=== PATIENT | female | born 1955 | race Caucasian/White ===

== ENCOUNTER → 2016-05-04 | Outpatient (CLI) | payer BC ==
[~2016-05-04] MED LIST: CALC600T9 PO; FEXO1TAB49 PO; FLUT0.15 NAE; SIMV40TA2 PO
--- NOTE | 2016-05-05 12:25 | MAMMOGRAPHY REPORT ---
BILATERAL DIGITAL SCREENING MAMMOGRAM TOMOSYNTHESIS WITH CAD: 05/04/2016 CLINICAL HISTORY: Routine screening examination. TECHNIQUE: Breast tomosynthesis in addition to standard 2D mammography was performed. Current study was also evaluated with a Computer Aided Detection (CAD) system. COMPARISON: Comparison is made to exams dated: 02/13/2016 breast MRI, 04/23/2015 mammogram - [facility], 02/16/2008, and 02/14/2007. BREAST COMPOSITION: The tissue of both breasts is heterogeneously dense, which may obscure small ma sses. FINDINGS: The parenchymal pattern is similar to prior mammograms and there are numerous stable bilat eral benign-appearing microcalcifications. There is a stable metallic biopsy marker in the 12:00 le ft breast denoting an area of prior benign biopsy. No suspicious mass, architectural distortion or c luster of microcalcifications is seen. IMPRESSION: ACR BI-RADS CATEGORY 2: BENIGN 1. There is no mammographic evidence of malignancy. A 1 year screening mammogram is recommended. 2. It should be noted that a short interval follow-up breast MRI was recommended based on the 2015 exam to ensure stability of areas of enhancement within the left breast. That prior recomm endation stands despite stable mammography as some abnormalities are mammographically occult. The patient will receive written notification of the results. Approximately 10% of breast cancers are not detected with mammography. A negative mammographic repor t should not delay biopsy if a clinically suggestive mass is present. Tania Trinidad M.D. ay/:05/04/2016 16:22:33 Gas Plant Operator: Marion GÓMEZ(Frieda)(Michelle), [facility] letter sent: Normal 1/2 BI-RADS Code: ACR BI-RADS Category 2: Benign
== END | disposition home or self-care (01) ==
LOC: C.MAMM 14:40
PROVIDERS: ATTEND Obstetrics & Gynecology
DX: Z12.31 Encounter for screening mammogram for malignant neoplasm of breast (principal)

== ENCOUNTER → 2016-05-27 | Outpatient (CLI) | payer BC | END | disposition home or self-care (01) | LOC: C.PAPS 09:43 | PROVIDERS: ATTEND Obstetrics & Gynecology | DX: Z01.419 Encounter for gynecological examination (general) (routine) without abnormal findings (principal) ==

== ENCOUNTER → 2016-08-07 | Outpatient (CLI) | payer BC ==
[~2016-08-07] MED LIST changes: +GADAVIST IV PRN
--- NOTE | 2016-08-10 13:16 | MAMMOGRAPHY REPORT ---
BREAST MRI OF BOTH BREASTS : 08/07/2016 CLINICAL HISTORY: Six-month follow-up breast MRI for areas of enhancement within the left breast on p rior breast MRI. Strong family history of breast cancer. History of prior benign MRI guided biopsy of the left breast. COMPARISON: Comparison is made to exams dated: 05/04/2016 mammogram, 02/13/2016 breast MRI, and 016 mammogram - [facility]. Outside breast MRI dated 07/13/2012. Technique: The patient was placed prone in a dedicated breast imaging coil. Precontrast axial T1-pranay ghted, axial T2-weighted fat saturation, and axial T1-weighted fat saturation images were obtained. After the administration of 5 mL of Gadavist IV contrast, sequential T1-weighted fat saturation image s were obtained. Subtraction images were obtained of the dynamic contrast enhanced sequences, and 3- D reformations were performed. The [employer] software was used for kinetic analysis. Findings: Right breast: There is mild background parenchymal enhancement. There are no suspicious enhancing ma sses or areas of abnormal enhancement seen within the right breast. There has been no significant in terval change compared to the prior breast MRI. Left breast: There is mild background parenchymal enhancement. The previously described three areas of focal enhancement within the left breast are stable compared to the prior breast MRI dated 02/13/20, and are also stable compared to the 07/13/2012 outside MRI when accounting for differences in MRI t echnique. One is an 8 mm focal area of enhancement in the left breast at approximately 11:30 middle depth, which demonstrates a persistent and plateau kinetic pattern (series [id number] image 47). The othe r measures 6 mm in the left 12:00 breast middle depth which demonstrates a plateau and persistent kin etic pattern (series [id number] image 41). One of the areas within the left 11:30 to 12:00 breast was rep ortedly previously biopsied at an outside institution, although the images from the biopsy are not av ailable for review and clip artifact is not clearly evident on the images. The other focus is a faint 3 mm focus of enhancement in the left breast at approximately 9:00 middle depth, which demonstrates no abnormal kinetics (series [id number] image 64). Given the stability to the 2012 exam given that one of the areas was previously biopsied and yielded benign pathology, the findings are considered benign. No new or suspicious masses or areas of abnormal enhancement are noted. There is no evidence of axillary adenopathy. The chest wall structures are negative. Visualized ext ramammary soft tissues are grossly unremarkable. IMPRESSION: ACR BI-RADS CATEGORY 2: BENIGN No MRI evidence of malignancy in either breast. The 3 previously described focal areas of enhancement within the left breast are stable compared to the 02/13/2016 and 07/13/2012 exams. Given the long-term stability, the findings are considered benign. Given the strong family history of breast cancer, re commend continuation with yearly screening breast MRI in addition to yearly mammography. Rae Hernandez M.D. ah/:08/08/2016 12:37:58 Independent Driver: superintendent radio communications, [facility] letter sent: Normal 1/2 BI-RADS Code: ACR BI-RADS Category 2: Benign
== END | disposition home or self-care (01) ==
LOC: C.MRI 08:44
PROVIDERS: ATTEND Obstetrics & Gynecology
DX: Z15.01 Genetic susceptibility to malignant neoplasm of breast (principal)

== ENCOUNTER → 2016-08-12 | Day surgery (SDC) | payer BC ==
[2016-08-04 11:20] VITALS: Ht 156.2 cm; Wt 54.5 kg
[~2016-08-12] VITALS: Ht 156.2 cm; Wt 54.5 kg
[~2016-08-12] MED LIST changes: -GADAVIST IV PRN; +LIDOCAINE HCL 2% 2 ML VIAL (20MG/ML) ONE; +PROPOFOL IV EMULSION 10 MG/ML 20 ML VIAL IV ONE; +SODIUM CHLORIDE 0.9% 500ML 500 ML IV ONE
--- NOTE | 2016-08-12 12:07 | Endo History and Physical ---
History & Physical Date of Service: Aug 12, 2016. Chief Complaint: Positive colorectal screen Referring Physician: Dr Hemanth Perales History of Present Illness 61 yo CF who presents for Colonoscopy secondary to heme positive stool. Past Surgical History Hx Cardiac Surgery: No Hx Internal Defibrillator: No Hx Pacemaker: No Hx Abdominal Surgery: Yes (OOPHORECTOMY) Hx of Implantable Prosthesis: No Hx Post-Op Nausea and Vomiting: No Hx Cancer Surgery: No Hx Thoracic Surgery: No Hx Orthopedic: No Hx Urinary Tract Surgery: No Family History None Social History Smoking Status: Never Smoker Hx Substance Use: No Hx Alcohol Use: No Allergies Coded Allergies: Sulfa Drugs (Verified Allergy, Mild, RASH, 08/04/16) Penicillins (Verified Allergy, Unknown, GI UPSET, 08/04/16) Current Medications Reported Home Medications Medications Dose Route/Sig Max Daily Dose Days Date Category Calcium + D (Calcium Carbonate-Vitamin D) 1 Tab Tab 1 Tab PO BID 08/04/16 Reported Zocor (Simvastatin) 40 Mg Tab 40 Mg PO QPM 08/04/16 Reported Flonase Allergy Relief (Fluticasone Propionate (Nasal)) 50 Mcg/Act Spr 2 Sprays MIRA QAM 08/04/16 Reported Cecile Allergy (Fexofenadine Hcl) 180 Mg Tab 1 Tab PO Q2D 08/04/16 Reported Vital Signs Weight (Kilograms): 54.55 Height (Feet): 5 Height (Inches): 1.5 Date Time Temp Pulse Resp B/P (MAP) Pulse Ox O2 Delivery O2 Flow Rate FiO2 08/12/16 11:46 37.0 90 20 145/83 97 Room Air Physical Exam General Appearance: WD/WN, no apparent distress Respiratory/Chest: Auscultation: breath sounds normal Cardiovascular: Heart Auscultation: RRR Abdomen: Bowel Sounds: normal Inspection & Palpation: soft, non-distended, no tenderness, guarding & rebound Assessment and Plan Assessment: 61 yo CF who presents for Colonoscopy secondary to heme positive stool. Plan: Proceed with Colonoscopy.
--- NOTE | 2016-08-12 12:52 | GI REPORT ---
Procedure Date: 08/12/2016 12:06 PM Procedure: Colonoscopy Indications: Heme positive stool Medicines: Monitored Anesthesia Care Complications: No immediate complications. Estimated Blood Loss: Estimated blood loss: none. Procedure: Pre-Anesthesia Assessment: - Prior to the procedure, a History and Physical was performed, and patient medications and allergies were reviewed. The patient's tolerance of previous anesthesia was also reviewed. The risks and benefits of the procedure and the sedation options and risks were discussed with the patient. All questions were answered, and informed consent was obtained. Prior Anticoagulants: The patient has taken no previous anticoagulant or antiplatelet agents. ASA Grade Assessment: II - A patient with mild systemic disease. After reviewing the risks and benefits, the patient was deemed in satisfactory condition to undergo the procedure. After I obtained informed consent, the scope was passed under direct vision. Throughout the procedure, the patient's blood pressure, pulse, and oxygen saturations were monitored continuously. The Scope was introduced through the anus and advanced to the terminal ileum. The colonoscopy was performed without difficulty. The patient tolerated the procedure well. The quality of the bowel preparation was good. The terminal ileum, ileocecal valve, appendiceal orifice, and rectum were photographed. Findings: A 3 mm polyp was found in the ascending colon. The polyp was sessile. The polyp was removed with a cold snare. Resection was complete, but the polyp tissue was not retrieved. A 5 mm polyp was found in the rectum. The polyp was sessile. The polyp was removed with a hot snare. Resection and retrieval were complete. Multiple small-mouthed diverticula were found in the sigmoid colon. Non-bleeding internal hemorrhoids were found during retroflexion. The hemorrhoids were small. Impression: - One 3 mm polyp in the ascending colon, removed with a cold snare. Complete resection. Polyp tissue not retrieved. - One 5 mm polyp in the rectum, removed with a hot snare. Resected and retrieved. - Diverticulosis in the sigmoid colon. - Non-bleeding internal hemorrhoids. Recommendation: - Resume previous diet. - Continue present medications. - Repeat colonoscopy for surveillance based on pathology results. - Return to primary care physician as previously scheduled. Richard Hart DO 08/12/2016 12:52:17 PM This report has been signed electronically. Note Initiated On: 08/12/2016 12:06 PM I attest to the content of the Intraoperative Record and orders documented therein, exceptions below
--- NOTE | 2016-08-12 13:01 | Anesthesiology Progress Note ---
Anesthesia Post Op Note Date & Time Aug 12, 2016 at 13:00 Vital Signs Pain Intensity: 0 Vital Signs Past 12 Hours Date Time Temp Pulse Resp B/P (MAP) Pulse Ox O2 Delivery O2 Flow Rate FiO2 08/12/16 12:45 75 16 97/66 96 Room Air 08/12/16 11:46 37.0 90 20 145/83 97 Room Air Notes Mental Status: alert / awake / arousable, participated in evaluation Pt Amnestic to Procedure: Yes Nausea / Vomiting: adequately controlled Pain: adequately controlled Airway Patency, RR, SpO2: stable & adequate BP & HR: stable & adequate Hydration State: stable & adequate Anesthetic Complications: no major complications apparent
[2016-08-12 13:05] VITALS: BP 123/77; PULSE 66; O2SAT 96
--- NOTE | 2016-08-12 13:13 | Discharge Instructions ---
Endoscopy Patient Instructions Date / Procedure(s) Performed Aug 12, 2016. Colonoscopy Allergy Information Coded Allergies: Sulfa Drugs (Verified Allergy, Mild, RASH, 08/04/16) Penicillins (Verified Allergy, Unknown, GI UPSET, 08/04/16) Discharge Date / Findings Aug 12, 2016. Colon polyps Diverticulosis Internal hemorrhoids Medication Instructions OK to resume all medications today as prescribed Medications Dose Route/Sig Max Daily Dose Days Date Category Calcium + D (Calcium Carbonate-Vitamin D) 1 Tab Tab 1 Tab PO BID 08/04/16 Reported Zocor (Simvastatin) 40 Mg Tab 40 Mg PO QPM 08/04/16 Reported Flonase Allergy Relief (Fluticasone Propionate (Nasal)) 50 Mcg/Act Spr 2 Sprays MIRA QAM 08/04/16 Reported Cecile Allergy (Fexofenadine Hcl) 180 Mg Tab 1 Tab PO Q2D 08/04/16 Reported Provider Instructions Activity Restrictions - No exercising or heavy lifting for 24 hours. - Do not drink alcohol the day of the procedure. - Do not drive a car or operate machinery until the day after the procedure. - Do not make any important decisions or sign important papers in 24 hours after the procedure. Following Day: - Return to full activity which may include returning to work/school. Diet Start your diet with liquids and light foods (jello, soup, juice, toast). Then eat your usual diet if not nauseated. Treatment For Common After Affects For mild abdominal pain, bloating, or excessive gas: - Rest - Eat lightly - Lie on right side Follow-Up Information Follow-up with Dr Jonas, Dr Saxena as scheduled Anesthesia Information What You Should Know You have had a procedure that required some medicine to reduce anxiety and discomfort. This treatment is called moderate sedation. After receiving the treatment, you may be sleepy, but you will be able to breathe on your own. The effects of the treatment may last for several hours. Follow these instructions along with Activity/Diet recommendations noted above: * Do NOT do anything where dizziness or clumsiness would be dangerous. * Rest quietly at home today, then you can be up and about tomorrow. * Have a responsible person stay with you the rest of today. * You may have had an I.V. today. If so, you may take the dressing off later today. Recommendations Call your doctor if: * Trouble breathing * Continuous vomiting for more than 24 hours * Temperature above 101 degrees * Severe abdominal pain or bloating * Pain not relieved by pain medicine ordered * There is increased drainage or redness from any incision * A large amount of rectal bleeding greater than 2-3 tablespoons. (If you had a polyp/s removed or have hemorrhoids, a small amount of blood - from the rectum is to be expected.) * You have any unanswered questions or concerns. IN THE EVENT OF A SERIOUS EMERGENCY, GO TO THE NEAREST EMERGENCY ROOM Your discharge instructions were prepared by provider Richard Hart. Patient Instructions Signature Page Sandy Parra Patient (or Guardian) Signature/Date: I have read and understand the instructions given to me by my caregivers. Caregiver/RN/Doctor Signature/Date: The above-named patient and/or guardian has received patient instructions on this date. + Original Patient Signature Page (only) stays with chart. Please make copy for patient.
== END | disposition home or self-care (01) ==
LOC: C.GI 11:23
PROVIDERS: ATTEND Internal Medicine
DX: D12.2 Benign neoplasm of ascending colon (principal); K62.1 Rectal polyp; K57.30 Diverticulosis of large intestine without perforation or abscess without bleeding; K64.8 Other hemorrhoids; R19.5 Other fecal abnormalities; Z79.899 Other long term (current) drug therapy

== ENCOUNTER → 2016-10-20 | Outpatient (CLI) | payer BC ==
[~2016-10-20] MED LIST changes: -LIDOCAINE HCL 2% 2 ML VIAL (20MG/ML) ONE; -PROPOFOL IV EMULSION 10 MG/ML 20 ML VIAL IV ONE; -SODIUM CHLORIDE 0.9% 500ML 500 ML IV ONE
== END | disposition home or self-care (01) ==
LOC: C.MAMM 15:00
PROVIDERS: ATTEND Obstetrics & Gynecology
DX: M81.0 Age-related osteoporosis without current pathological fracture (principal); M85.89 Other specified disorders of bone density and structure, multiple sites

== ENCOUNTER → 2017-05-04 | Outpatient (CLI) | payer BC ==
--- NOTE | 2017-05-05 15:56 | MAMMOGRAPHY REPORT ---
BILATERAL DIGITAL SCREENING MAMMOGRAM TOMOSYNTHESIS WITH CAD: 05/04/2017 CLINICAL HISTORY: Routine screening. Patient has no complaints. TECHNIQUE: Breast tomosynthesis in addition to standard 2D mammography was performed. Current study was also evaluated with a Computer Aided Detection (CAD) system. COMPARISON: Comparison is made to exams dated: 08/07/2016 breast MRI, 05/04/2016 mammogram, 02/13/2016 b reast MRI, 04/23/2015 mammogram - [facility], 02/28/2008, and 02/23/2008. BREAST COMPOSITION: The tissue of both breasts is heterogeneously dense, which may obscure small mas ses. FINDINGS: There are scattered benign calcifications in both breasts. There is a stable benign metal lic biopsy clip in the 12:00 middle one third of the left breast. No suspicious mass, architectural d istortion or new cluster of microcalcifications is seen. IMPRESSION: ACR BI-RADS CATEGORY 2: BENIGN There is no mammographic evidence of malignancy. A 1 year screening mammogram is recommended. The pa tient will receive written notification of the results. Approximately 10% of breast cancers are not detected with mammography. A negative mammographic report should not delay biopsy if a clinically suggestive mass is present. Tania Trinidad M.D. ay/:05/04/2017 17:03:25 Pairing Machine Operator: Frieda Galarza M, [facility] letter sent: Normal 1/2 BI-RADS Code: ACR BI-RADS Category 2: Benign
== END | disposition home or self-care (01) ==
LOC: C.MAMM 15:28
PROVIDERS: ATTEND Obstetrics & Gynecology
DX: Z12.31 Encounter for screening mammogram for malignant neoplasm of breast (principal)

== ENCOUNTER → 2017-06-18 | Outpatient (CLI) | payer BC | END | disposition home or self-care (01) | LOC: C.PAPS 15:37 | PROVIDERS: ATTEND Obstetrics & Gynecology | DX: Z01.419 Encounter for gynecological examination (general) (routine) without abnormal findings (principal) ==

== ENCOUNTER → 2017-09-23 | Outpatient (CLI) | payer BC ==
[2017-09-23 12:54] LABS: BLOOD UREA NITROGEN 11 mg/dl (7-18); CREATININE 0.69 mg/dl (0.60-1.20)
== END | disposition home or self-care (01) ==
LOC: C.LAB1850 11:37
PROVIDERS: ATTEND Obstetrics & Gynecology
DX: Z15.01 Genetic susceptibility to malignant neoplasm of breast (principal)

== ENCOUNTER → 2017-10-19 | Outpatient (CLI) | payer BC ==
[~2017-10-19] MED LIST changes: +GADAVIST IV PRN
--- NOTE | 2017-10-20 13:52 | MAMMOGRAPHY REPORT ---
BREAST MRI OF BOTH BREASTS: 10/19/2017 CLINICAL HISTORY: 62-year-old woman with strong family history of breast cancer = mother, sister and aunt, and heterogeneously dense breasts. Patient presents for screening breast MRI. History of prior benign left breast biopsy. COMPARISON: Prior breast MRIs dated 08/07/2016, 02/13/2016, 07/13/2012, 03/09/2008, prior mammograms dated , 05/04/2016, 04/23/2015, 04/06/2014, 04/04/2013. TECHNIQUE: Using a 1.5 Francie magnet and dedicated breast coil, multisequence axial images were obtain ed through the breasts. After uneventful IV administration of 5 mL of Gadavist, dynamic multiphase c ontrast-enhanced axial images, and sagittal postcontrast were obtained. Temporal subtraction axial i mages and 3-D MIP images are provided. Everything was then reviewed on a 3-D workstation, [employer] [facility]. FINDINGS: Right breast: There is mild background parenchymal enhancement. No suspicious enhancing mass, non-ma ss enhancement or suspicious kinetics identified in the right breast. The nipple areolar complex is intact. No significant interval change compared to prior MRIs. No suspicious right axillary lymphad enopathy. Left breast: There is mild background parenchymal enhancement. There is an oval 2 lobulated enhancin g mass in the 12:00 far superior, middle one third of the left breast (axial page 40/112). Attempt w as made at measuring this lesion in the same plane as prior breast MRIs. When comparing directly to the 02/13/2016 MRI this mass is measuring slightly larger, with current measurements of 6.3 x 3.8 mm, previously measured 5.0 x 3.6 mm. Additionally, the kinetic information demonstrates new central was hout of this mass, previously demonstrated persistent type kinetics. No corresponding T2 hyperintens ity. Although the appearance was somewhat similar dating back to 2012, given slight interval change, targeted second look ultrasound with possible ultrasound-guided core biopsy is recommended. There i s somewhat clumped non-mass enhancement in the 11:30 middle to anterior left breast measuring 11.6 x 4.8 mm, which appears stable dating back to the 2015 and 2012 MRIs and most likely represents benign fibrocystic change. No other new suspicious enhancing mass, non-mass enhancement or suspicious kinet ics identified in the left breast. The nipple areolar complex is intact. No suspicious left axillar y lymphadenopathy. IMPRESSION: ACR BI-RADS CATEGORY 0: INCOMPLETE EVALUATION: NEED ADDITIONAL IMAGING EVALUATION 1. Slight interval increase in size and new associated washout kinetics within a 6.3 mm enhancing ma ss in the 12:00 left breast. Given minimal interval change this remains indeterminate and targeted s econd look ultrasound with possible ultrasound-guided core biopsy is recommended. 2. Stable non-mass enhancement in the 11:30 left breast that appears similar dating back to at least 2012, likely benign. 3. Stable MRI appearance of the right breast without evidence of malignancy. 4. No suspicious right or left axillary lymphadenopathy. Tania Trinidad M.D. ay/:10/20/2017 07:37:47 Medicare Specialist: operations officer, [facility] letter sent: Addl Imaging 0 BI-RADS Code: ACR BI-RADS Category 0: Incomplete Evaluation: Need Additional Imaging Evaluation
== END | disposition home or self-care (01) ==
LOC: C.MRI 13:44
PROVIDERS: ATTEND Obstetrics & Gynecology
DX: Z15.01 Genetic susceptibility to malignant neoplasm of breast (principal); N63.42 Unspecified lump in left breast, subareolar; N64.89 Other specified disorders of breast

== ENCOUNTER → 2017-10-27 | Outpatient (CLI) | payer BC ==
[~2017-10-27] MED LIST changes: -GADAVIST IV PRN
--- NOTE | 2017-10-28 15:10 | MAMMOGRAPHY REPORT ---
ULTRASOUND OF LEFT BREAST: 10/27/2017 CLINICAL HISTORY: 62-year-old woman called back from breast MRI for second look ultrasound in the lef t breast, for slight interval increased size and washout kinetics of a 6.3 mm enhancing mass in the 1 2:00 left breast and also assess nodularity versus non-mass enhancement slightly inferiorly in the 11 30 left breast. Patient had prior MRIs and an MRI guided biopsy in the 12:00 left breast in 2008. Str vernell family history of breast cancer = mother, maternal aunt and sister. Personal history of ATN gene. COMPARISON: Breast MRI dated 10/19/2017, 08/07/2016, 05/04/2016, 02/13/2016, 07/13/2012, 03/09/2008, screening mammograms dated 05/04/2017, 05/04/2016, 04/23/2015. FINDINGS: Targeted ultrasound was performed in the superior breast from 10:00 through 2:00 with parti cular attention to the 12:00 axis in the area of increasingly prominent oval mass seen on recent MRI with washout kinetics. A lobulated anechoic benign cyst with circumscribed borders and posterior aco ustic enhancement is noted in the 11:00 left breast, 2 cm from the nipple. There is a thin internal nonvascular septation. This cyst measures 4.9 x 2.4 x 5.9 mm. No other discrete solid or cystic mas s or textural difference or architectural distortion is appreciated in real-time ultrasound scanning of the superior left breast. We discussed the negative ultrasound findings and also the current MRI images comparing back to multi ple prior MRIs. Despite relative stability of both the 6 mm enhancing mass in the 12:00 middle one t hird of the left breast it remains suspicious with washout kinetics. Additionally, the area of non-m ass enhancement slightly medial in the 11:00 to 12:00 left breast is more nodular in appearance when comparing back to the 2015 and 2012 MRIs. 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 IMPRESSION: ACR BI-RADS CATEGORY 4: SUSPICIOUS Second look ultrasound performed in the superior left breast was unyielding for any suspicious abnorm ality. However, left breast MRI guided biopsy 2 is recommended for the 6 mm enhancing mass and milind cent nodular non-mass enhancement that demonstrates suspicious washout kinetics and are slightly more prominent comparing to more remote MRIs. These results and recommendations were discussed with the patient at the time of the exam. She tenta tively scheduled the MRI biopsies prior to leaving the department. Tania Trinidad M.D. ay/:10/27/2017 16:28:09 Airborne Weapons Technical Manager: Tania Trinidad, [facility] letter sent: Abnormal 4/5 BI-RADS Code: ACR BI-RADS Category 4: Suspicious
== END | disposition home or self-care (01) ==
LOC: C.MAMM 12:36
PROVIDERS: ATTEND Obstetrics & Gynecology
DX: N63.20 Unspecified lump in the left breast, unspecified quadrant (principal)